=== PATIENT | male | born 1980 | race African-American/Black ===

== ENCOUNTER → 2020-01-23 | Outpatient (CLI) | payer MEDICAID ==
[~2020-01-23] MED LIST: AMIO400T7 PO; BUME1TAB3 PO; DIGO0.12 PO; IVAB1.7T PO; MAGN400T40 PO; METO2.5T11 PO; METO25TA93 PO; POTA10TA51 PO; POTA8TAB2 PO; RIVA15TA PO; SACU1TAB PO
[2020-01-23 12:02] LABS: Basophils # (auto) 0 10 ^3/uL (0-0.2); Basophils % (auto) 0.9 % (0.0-2.0); Eosinophils # (auto) 0.1 10 ^3/uL (0-0.8); Eosinophils % (auto) 2.3 % (0.0-7.0); Hematocrit 46.6 % (41.0-53.0); Hemoglobin 14.8 g/dL (13.5-17.5); Lymphocytes # (auto) 0.6 10 ^3/uL (0.4-5.4); Lymphocytes % (auto) 17.1 % (10.0-50.0); Mean Corpuscular Hemoglobin 29.4 pg (28.0-32.0); Mean Corpuscular Hgb Conc. 31.9 g/dL (32.0-36.0); Mean Corpuscular Volume 92.1 fL (80.0-100.0); Monocytes # (auto) 0.6 10 ^3/uL (0-1.3); Monocytes % (auto) 16.9 % (0.0-12.0); Neutrophils # (auto) 2.4 10 ^3/uL (1.6-8.6); Neutrophils % (auto) 62.8 % (37.0-80.0); Nucleated Red Blood Cells % 0.1 %; Platelet Count (auto) 176 10^3/uL (140-450); Red Blood Cells 5.06 10^6/uL (4.5-5.90); Red Cell Distribution Width 15.4 % (11.8-14.3); White Blood Cell 3.8 10^3/uL (4.4-10.8)
[2020-01-23 12:12] LABS: BUN/Creatinine Ratio 19.1; Calcium 9.6 mg/dL (8.5-10.1); Potassium 4.2 mmol/L (3.5-5.1)
[2020-01-23 12:21] LABS: INR 1.34 (0.9-1.15); Partial Thromboplastin Time 33.4 sec (23.0-31.2)
== END | disposition home or self-care (01) ==
LOC: Rad HDHVI 08:36
PROVIDERS: ATTEND Internal Medicine Cardiovascular Disease
DX: Z01.812 Encounter for preprocedural laboratory examination (principal); R91.1 Solitary pulmonary nodule; I51.7 Cardiomegaly; R06.02 Shortness of breath; I42.9 Cardiomyopathy, unspecified; I47.2 Ventricular tachycardia; I48.91 Unspecified atrial fibrillation; I50.9 Heart failure, unspecified
CPT/HCPCS: 36415; 71046; 80048; 85025; 85610; 85730

== ENCOUNTER 2020-01-29 06:55 | Day surgery (SDC) | payer MEDICAID ==
[~2020-01-29] VITALS: Ht 175.3 cm; Wt 64.0 kg
[2020-01-29] MEDS ORDERED: LIDOCAINE 2%HCL (LOCAL ANESTH.) INJ 20ML MDV ONE ×2 (08:45→09:39)
[2020-01-29] MEDS ORDERED: IOHEXOL 350 MG/ML 100ML IJ ONE (08:45)
[2020-01-29] MEDS ORDERED: ANGIOMAX 250 MG VIAL IV ONE (09:02)
[2020-01-29] MEDS ORDERED: fentaNYL CITRATE 100 MCG/2 ML VL ONE (09:02)
[2020-01-29] MEDS ORDERED: MIDAZOLAM HCL 1MG/1ML-2 ML VIAL ONE (09:02)
[2020-01-29] MEDS ORDERED: SODIUM CHL 0.9% 0 ML ONE (09:02)
[2020-01-29] MEDS ORDERED: IODIXANOL 320MG/ML 100ML BTL IV ONE (09:02)
[2020-01-29] MEDS ORDERED: ONDANSETRON HCL 4 MG/2 ML VIAL IV PRN (12:15)
[2020-01-29] MEDS ORDERED: HYDROcodone-ACET 5/325MG TAB PO PRN (12:15)
[2020-01-29] MEDS ORDERED: ACETAMINOPHEN 500 MG TAB PO PRN (12:15)
== END 2020-01-29 13:16 | disposition home or self-care (01) ==
LOC: CATH 06:55
PROVIDERS: ATTEND Internal Medicine Cardiovascular Disease
DX: I42.9 Cardiomyopathy, unspecified (principal); I25.10 Atherosclerotic heart disease of native coronary artery without angina pectoris; I11.0 Hypertensive heart disease with heart failure; Z20.828 Contact with and (suspected) exposure to other viral communicable diseases
CPT/HCPCS: 93460; C1751; C1760; C1769; C1894; J1644; J2250; J3010; Q9967; U0003; 99152; 99153

== ENCOUNTER → 2020-03-15 | Outpatient (CLI) | payer MEDICAID ==
[~2020-03-15] MED LIST changes: +CYANOCOBALAMIN (B-12) 1000 MCG/1 ML VIAL IM ONE; +CYANOCOBALAMIN (B-12) 1000 MCG/1 ML VIAL ONE; +DOBUTamine 1000MCG/ML 250 ML IV ONE
--- NOTE | 2020-03-15 08:39 | NUR ---
PT. TO CHF CLINIC FOR INDUCTION FOR WEEKLY DOBUTAMINE INFUSIONS PER DR. GOLDEN. PT. WITH HX: OF CARDIOMYOPATHY WITH REDUCED EF AND MOST RECENT LHC SHOWING EF LESS THAN 20%. PT HAS HAD A DUAL CHAMBER AICD SINCE 2018, AND HAS NOW BEEN STARTED ON HEART TRANSPLANT LIST AT [facility] PROTOCOL PER DR. GOLDEN, WITH EXPLANATION IN PROCESS OF STAGING. PT. HASN'T TAKEN ANY OF HIS MEDS THIS MORNING EXCEPT HIS BUMEX. MD ORDERS RECEIVED AND CARRIED OUT. SEE NSG ASSESS.
--- NOTE | 2020-03-15 08:58 | NUR ---
IV insertion IV access obtained, via clean sterile technique by inserting 22 gauge catheter at after attempt(s). IV secured properly. No trauma to site. Patient tolerated procedure well. LABS SENT PER MD ORDER.
--- NOTE | 2020-03-15 09:07 | NUR ---
Clinic Provider Clinic Provider into see pt with new orders received and carried out. Dobutamine gtt started at {3}mcg/kg/hr per MD order.
--- NOTE | 2020-03-15 09:15 | NUR ---
EKG DONE WITH KNOWN HX OF A-FIB/FLUTTER. VARIABLE RATE 51-68. RESULTS TO
[2020-03-15 09:54] LABS: Basophils # (auto) 0 10 ^3/uL (0-0.2); Basophils % (auto) 1.2 % (0.0-2.0); Eosinophils # (auto) 0 10 ^3/uL (0-0.8); Eosinophils % (auto) 1.3 % (0.0-7.0); Hematocrit 44.9 % (41.0-53.0); Hemoglobin 14.4 g/dL (13.5-17.5); Lymphocytes # (auto) 0.5 10 ^3/uL (0.4-5.4); Lymphocytes % (auto) 13.5 % (10.0-50.0); Mean Corpuscular Hemoglobin 29.8 pg (28.0-32.0); Mean Corpuscular Hgb Conc. 32.2 g/dL (32.0-36.0); Mean Corpuscular Volume 92.8 fL (80.0-100.0); Monocytes # (auto) 0.5 10 ^3/uL (0-1.3); Monocytes % (auto) 13.1 % (0.0-12.0); Neutrophils # (auto) 2.7 10 ^3/uL (1.6-8.6); Neutrophils % (auto) 70.9 % (37.0-80.0); Nucleated Red Blood Cells % 0.1 %; Platelet Count (auto) 222 10^3/uL (140-450); Red Blood Cells 4.84 10^6/uL (4.5-5.90); Red Cell Distribution Width 17.4 % (11.8-14.3); White Blood Cell 3.8 10^3/uL (4.4-10.8)
--- NOTE | 2020-03-15 10:00 | NUR ---
PT. WITH NO C/O. VSS WITH Q 15MIN OVER PAST HOUR. PT. TO AND FROM BR WITHOUT ASSIST.
[2020-03-15 10:10] LABS: Albumin 4.5 g/dL (3.4-5.0); Calcium 9.4 mg/dL (8.5-10.1); Magnesium 2.8 mg/dL (1.6-2.6); Potassium 3.4 mmol/L (3.5-5.1)
[2020-03-15 10:14] LABS: BUN/Creatinine Ratio 24.4; Bilirubin, Total 1.3 mg/dL (0.2-1.0); Total Protein 8.6 g/dL (6.4-8.2)
--- NOTE | 2020-03-15 10:42 | NUR ---
MEDS:PT. MEDICATED WITH VIT. B12 1000MCG IM RT. DELT PER MD ORDER.
--- NOTE | 2020-03-15 11:30 | NUR ---
comfort: pt. resting with no c/o. vss, pending labs.
--- NOTE | 2020-03-15 12:25 | NUR ---
MEDS: DOBUTAMINE COMPLETED WITH NO ADVERSE EVENTS. IV DC'D , SITE BENIGN, CATH. INTACT. PT. GIVEN SAMPLE OF VIT. D3 PER DR. GOLDEN WITH INSTRUCTIONS TO USE 5,000 UNITS Q HS. MED REC STILL IN PROGRESS REGARDING POTENTIAL CHANGES IN DOSING PER DR. GOLDEN PENDING LAB RESULTS.
--- NOTE | 2020-03-15 12:47 | NUR ---
Discharge Instructions See e-MAR for any mediations given with this visit. Patient education given on disease process. Patient verbalized understanding. Previous labs reviewed. Patient discharged in stable condition with after care instructions and follow up appointment. THIS RN WILL CALL PT. WITH LAB RESULTS AFTER REVIEW WITH DR. GOLDEN. PT. TO RTC IN ONE WEEK FOR DOBUTREX THERAPY. HEART TRANSPLANT STAGING TO CONTINUE THROUGH CLINIC.
--- NOTE | 2020-03-15 16:00 | NUR ---
LABS REVIEWED WITH DR. GOLDEN, SHOWING WORSENING BUN/CREAT. SINCE LAST OUTSIDE LAB DRAW AT [facility]. ON 01/22. NEW ORDERS RECEIVED FROM DR. GOLDEN TO HAVE PT. COME TO CLINIC 3 TIMES PER WEEK, HOLDING HIS BUMEX ON DAYS OF TX. PT. TO HOLD METOLAZONE UNTIL FURTHER ORDERS. PT. STATES HE WAS TAKING IT 2-3 TIMES PER WEEK. PT. ALSO TO STOP AMIODARONE 400MG PO DAILY NOW. THESE INSTRUCTIONS ON MED REC CHANGES WERE CALLED TO PT. BY THIS RN, WHO NOW WILL COME INTO CLINIC M/W/F. PT. WAS ALSO INSTRUCTED TO TAKE 16 MEQ POTASSIUM X ONE DOSE TODAY, AND HOLD HIS KCL ON DAYS HE HOLDS BUMEX. PT. HAS THIS RN'S CELL NUMBER FOR ANY QUESTIONS.
== END | disposition home or self-care (01) ==
LOC: CHF HDHVI 08:44
PROVIDERS: ATTEND Internal Medicine Cardiovascular Disease
DX: I11.0 Hypertensive heart disease with heart failure (principal); I50.23 Acute on chronic systolic (congestive) heart failure; I25.10 Atherosclerotic heart disease of native coronary artery without angina pectoris; I42.8 Other cardiomyopathies; I48.91 Unspecified atrial fibrillation; D64.9 Anemia, unspecified; D51.9 Vitamin B12 deficiency anemia, unspecified; E11.9 Type 2 diabetes mellitus without complications
CPT/HCPCS: 36415; 80053; 80162; 82306; 82607; 83036; 83735; 83880; 85025; 96365; 96366; 96372; G0463; J1250; J3420

== ENCOUNTER → 2020-03-16 | Outpatient (CLI) | payer MEDICAID ==
[~2020-03-16] MED LIST changes: -CYANOCOBALAMIN (B-12) 1000 MCG/1 ML VIAL IM ONE; -CYANOCOBALAMIN (B-12) 1000 MCG/1 ML VIAL ONE; -DOBUTamine 1000MCG/ML 250 ML IV ONE
== END | disposition home or self-care (01) ==
LOC: Rad HDHVI 13:04
PROVIDERS: ATTEND Internal Medicine Cardiovascular Disease
DX: I08.1 Rheumatic disorders of both mitral and tricuspid valves (principal); I50.43 Acute on chronic combined systolic (congestive) and diastolic (congestive) heart failure; I42.0 Dilated cardiomyopathy
CPT/HCPCS: 93306

== ENCOUNTER → 2020-03-17 | Outpatient (CLI) | payer MEDICAID ==
[2020-03-17] VITALS (9 sets, daily range): BP systolic 91–108; BP diastolic 54–70
[~2020-03-17] MED LIST changes: +DOBUTamine 1000MCG/ML 250 ML IV ONE
[2020-03-17 16:03] LABS: Potassium 3.5 mmol/L (3.5-5.1)
== END | disposition home or self-care (01) ==
LOC: CHF HDHVI 08:25
PROVIDERS: ATTEND Internal Medicine Cardiovascular Disease
DX: I11.0 Hypertensive heart disease with heart failure (principal); I50.23 Acute on chronic systolic (congestive) heart failure; R94.4 Abnormal results of kidney function studies; I25.10 Atherosclerotic heart disease of native coronary artery without angina pectoris; I48.91 Unspecified atrial fibrillation; I42.8 Other cardiomyopathies; R53.83 Other fatigue; R06.02 Shortness of breath
CPT/HCPCS: 36415; 71046; 82565; 84132; 84295; 84520; 96365; 96366; G0463; J1250

== ENCOUNTER → 2020-03-19 | Outpatient (CLI) | payer MEDICAID ==
[2020-03-19] VITALS (9 sets, daily range): BP systolic 93–139; BP diastolic 51–80
[~2020-03-19] VITALS: Ht 30.5 cm; Wt 0.5 kg
[~2020-03-19] MED LIST changes: +FUROSEMIDE 20 MG/2 ML VIAL IV ONE; +FUROSEMIDE 20 MG/2 ML VIAL ONE; +FUROSEMIDE 40 MG/4 ML VIAL ONE; +POTASSIUM CHL 10 Meq TABLET PO ONE; +POTASSIUM CHL 20 Meq TABLET PO ONE
== END | disposition home or self-care (01) ==
LOC: CHF HDHVI 08:17
PROVIDERS: ATTEND Internal Medicine Cardiovascular Disease
DX: I11.0 Hypertensive heart disease with heart failure (principal); I50.23 Acute on chronic systolic (congestive) heart failure; R53.83 Other fatigue; I25.10 Atherosclerotic heart disease of native coronary artery without angina pectoris; I42.8 Other cardiomyopathies; I48.91 Unspecified atrial fibrillation
CPT/HCPCS: 36415; 82565; 83880; 84132; 84295; 84520; 96365; 96366; 96375; G0463; J1250; J1940

== ENCOUNTER → 2020-03-22 | Outpatient (CLI) | payer MEDICAID ==
[2020-03-22] VITALS (9 sets, daily range): BP systolic 90–112; BP diastolic 49–73
[~2020-03-22] VITALS: Ht 30.5 cm; Wt 64.2 kg
[~2020-03-22] MED LIST changes: -FUROSEMIDE 20 MG/2 ML VIAL IV ONE; -FUROSEMIDE 20 MG/2 ML VIAL ONE; -FUROSEMIDE 40 MG/4 ML VIAL ONE; -POTASSIUM CHL 10 Meq TABLET PO ONE; -POTASSIUM CHL 20 Meq TABLET PO ONE
--- NOTE | 2020-03-22 08:24 | NUR ---
CLINIC PT ARRIVED TO THE CHF CLINIC FOR SCHEDULED CHF EVAL AND TX, A/OX4, AMBULATORY, BREATHING IS EVEN AND UNLABORED. PT BROUGHT IN HIS 24HOUR URINE SCREEN AND LABS TO BE DRAWN TODAY FOR PHASE 1 OF THE TRANSPLANT LIST. PT HAS A 3.8 WT DECREASE SINCE LAST VISIT ON 03/19/20
--- NOTE | 2020-03-22 08:43 | NUR ---
IV insertion IV access obtained, via clean sterile technique by inserting 22 gauge catheter at LAC after 1 attempt(s). IV secured properly. No trauma to site. Patient tolerated procedure well. LABS DRAWN AND SENT. NOTE INSERTED BY SUSSY QUIROS
--- NOTE | 2020-03-22 08:52 | NUR ---
DOBUTAMINE IV STARTED @ 5MCG/KG/MIN PER MD ORDERS, VSS, WILL CONTINUE TO MONITOR.
--- NOTE | 2020-03-22 10:00 | NUR ---
PT TOLERATING DOBUTAMINE INFUSION, IV SITE BENIGN, VSS, WILL CONTINUE TO MONITOR.
--- NOTE | 2020-03-22 12:02 | NUR ---
IV removal IV DC'd with sterile technique, catheter fully intact. Pressure dressing applied to site. Patient tolerated procedure well. Discharged with aftercare instructions per MD. NOTE: REMOVED BY SUSSY QUIROS
--- NOTE | 2020-03-22 12:06 | NUR ---
Discharge Instructions See e-MAR for any mediations given with this visit. Patient education given on disease process. Patient verbalized understanding. Previous labs reviewed. Patient discharged in stable condition with after care instructions and follow up appointment ON SUN. NOTE DOBUTAMINE IV [id number] ADMIN BY SUSSY QUIROS
[2020-03-22 12:32] LABS: Basophils # (auto) 0 10 ^3/uL (0-0.2); Eosinophils # (auto) 0 10 ^3/uL (0-0.8); Eosinophils % (auto) 0.9 % (0.0-7.0); Hematocrit 45.6 % (41.0-53.0); Hemoglobin 15.2 g/dL (13.5-17.5); Lymphocytes # (auto) 0.5 10 ^3/uL (0.4-5.4); Lymphocytes % (auto) 12.8 % (10.0-50.0); Mean Corpuscular Hemoglobin 30.7 pg (28.0-32.0); Mean Corpuscular Hgb Conc. 33.3 g/dL (32.0-36.0); Mean Corpuscular Volume 92.2 fL (80.0-100.0); Monocytes # (auto) 0.5 10 ^3/uL (0-1.3); Monocytes % (auto) 12.2 % (0.0-12.0); Neutrophils # (auto) 2.7 10 ^3/uL (1.6-8.6); Neutrophils % (auto) 73.1 % (37.0-80.0); Nucleated Red Blood Cells % 0.2 %; Platelet Count (auto) 236 10^3/uL (140-450); Red Blood Cells 4.95 10^6/uL (4.5-5.90); Red Cell Distribution Width 17.3 % (11.8-14.3); White Blood Cell 3.7 10^3/uL (4.4-10.8)
[2020-03-22 12:33] LABS: Potassium 3.9 mmol/L (3.5-5.1)
[2020-03-22 12:42] LABS: BUN/Creatinine Ratio 22.1; Calcium 9.3 mg/dL (8.5-10.1); Magnesium 2.6 mg/dL (1.6-2.6)
[2020-03-22 12:47] LABS: Hepatitis B Surface Antibody Negative
[2020-03-22 13:22] LABS: Creatinine, Urine 42.2 mg/dL (30.0-125.0); Protein, Urine 5.4 mg/dL (0.0-11.9)
[2020-03-22 13:24] LABS: 24 Hr. Total Protein, Urine 102.6 mg/24 Hr (<149.1)
[2020-03-22 13:26] LABS: Hepatitis A Total Antibody Positive
[2020-03-22 14:32] LABS: Creatinine Clearance, Urine 19.49 mL/min (75-115)
[2020-03-22 17:50] LABS: Hepatitis B Core Total AB Negative; Hepatitis C Antibody Negative (Negative)
[2020-03-25 08:48] LABS: Hepatitis B Surface Antigen Negative (Negative)
== END | disposition home or self-care (01) ==
LOC: CHF HDHVI 08:46
PROVIDERS: ATTEND Internal Medicine Cardiovascular Disease
DX: I11.0 Hypertensive heart disease with heart failure (principal); I50.23 Acute on chronic systolic (congestive) heart failure; I50.32 Chronic diastolic (congestive) heart failure; I25.10 Atherosclerotic heart disease of native coronary artery without angina pectoris; I48.91 Unspecified atrial fibrillation; I42.0 Dilated cardiomyopathy
CPT/HCPCS: 36415; 80048; 82575; 83735; 83880; 84156; 85025; 86703; 86704; 86706; 86708; 86803; 86850; 86900; 86901; 87340; 96365; 96366; G0463; J1250

== ENCOUNTER → 2020-03-24 | Outpatient (CLI) | payer MEDICAID ==
[2020-03-24] VITALS (9 sets, daily range): BP systolic 91–121; BP diastolic 42–70
[~2020-03-24] VITALS: Ht 30.5 cm; Wt 64.5 kg
[2020-03-24 12:08] LABS: Urine Blood 3+ /uL (Negative); Urine Specific Gravity 1.011 (1.001-1.035)
[2020-03-24 12:33] LABS: Potassium 3.9 mmol/L (3.5-5.1)
== END | disposition home or self-care (01) ==
LOC: CHF HDHVI 08:25
PROVIDERS: ATTEND Internal Medicine Cardiovascular Disease
DX: I11.0 Hypertensive heart disease with heart failure (principal); I50.23 Acute on chronic systolic (congestive) heart failure; E87.6 Hypokalemia; N39.0 Urinary tract infection, site not specified; I25.10 Atherosclerotic heart disease of native coronary artery without angina pectoris; I42.8 Other cardiomyopathies; I48.91 Unspecified atrial fibrillation
CPT/HCPCS: 36415; 81003; 82565; 83880; 84132; 84520; 87086; 96365; 96366; G0463; J1250

== ENCOUNTER → 2020-03-26 | Outpatient (CLI) | payer MEDICAID ==
[2020-03-26] VITALS (8 sets, daily range): BP systolic 96–114; BP diastolic 61–76
[2020-03-26 09:27] LABS: Basophils # (auto) 0.1 10 ^3/uL (0-0.2); Basophils % (auto) 1.4 % (0.0-2.0); Eosinophils # (auto) 0 10 ^3/uL (0-0.8); Eosinophils % (auto) 1.2 % (0.0-7.0); Hematocrit 43.8 % (41.0-53.0); Lymphocytes # (auto) 0.5 10 ^3/uL (0.4-5.4); Lymphocytes % (auto) 10.8 % (10.0-50.0); Mean Corpuscular Hemoglobin 29.9 pg (28.0-32.0); Mean Corpuscular Hgb Conc. 32.1 g/dL (32.0-36.0); Mean Corpuscular Volume 93.2 fL (80.0-100.0); Monocytes # (auto) 0.7 10 ^3/uL (0-1.3); Monocytes % (auto) 15.7 % (0.0-12.0); Neutrophils % (auto) 70.9 % (37.0-80.0); Nucleated Red Blood Cells % 0.2 %; Platelet Count (auto) 191 10^3/uL (140-450); Red Cell Distribution Width 16.6 % (11.8-14.3); White Blood Cell 4.2 10^3/uL (4.4-10.8)
[2020-03-26 09:37] LABS: Potassium 4.2 mmol/L (3.5-5.1)
== END | disposition home or self-care (01) ==
LOC: CHF HDHVI 08:10
PROVIDERS: ATTEND Internal Medicine Cardiovascular Disease
DX: I11.0 Hypertensive heart disease with heart failure (principal); I50.23 Acute on chronic systolic (congestive) heart failure; R53.83 Other fatigue; I25.10 Atherosclerotic heart disease of native coronary artery without angina pectoris; I42.8 Other cardiomyopathies; I48.91 Unspecified atrial fibrillation
CPT/HCPCS: 36415; 82565; 83880; 84132; 84295; 84520; 85025; 96365; 96366; G0463; J1250

== ENCOUNTER → 2020-03-29 | Outpatient (CLI) | payer MEDICAID ==
[~2020-03-29] VITALS: Ht 30.5 cm; Wt 64.0 kg
[2020-03-29] VITALS (9 sets, daily range): BP systolic 99–115; BP diastolic 69–84
[~2020-03-29] MED LIST changes: +MUPIROCIN 2% OINT 15gm or 22gm ONE
--- NOTE | 2020-03-29 08:10 | NUR ---
CLINIC PT ARRIVED TO THE CHF CLINIC FOR SCHEDULED CHF EVAL AND TX, A/OX4, AMBULATORY, BREATHING IS EVEN AND UNLABORED, PT C/O COUGH X2 DAYS
--- NOTE | 2020-03-29 08:16 | NUR ---
CLINIC PT ARRIVED TO THE CHF CLINIC FOR SCHEDULED CHF EVAL AND TX, A/OX4, AMBULATORY, BREATHING IS EVEN AND UNLABORED, PT C/O COUGH X 2 DAYS. Addendum: 03/29/20 at 0951 by SUSSY KNIGHT RN RN WRONG PT
--- NOTE | 2020-03-29 08:22 | NUR ---
IV insertion IV access obtained, via clean sterile technique by inserting 22 gauge catheter at LW after 1 attempt(s). IV secured properly. No trauma to site. Patient tolerated procedure well. LABS DRAWN AND SENT. NOTE INSERTED BY SUSSY QUIROS
--- NOTE | 2020-03-29 08:28 | NUR ---
DOBUTAMINE IV STARTED @ 5MCG/KG/MIN PER MD ORDERS, VSS, WILL CONTINUE TO MONITOR.
--- NOTE | 2020-03-29 08:38 | NUR ---
IV insertion IV access obtained, via clean sterile technique by inserting 22 gauge catheter at after 1 attempt(s). IV secured properly. No trauma to site. Patient tolerated procedure well. LABS DRAWN AND SENT. NOTE INSERTED BY SUSSY QUIROS Addendum: 03/29/20 at 0951 by SSUSY KNIGHT RN RN WRONG PT
--- NOTE | 2020-03-29 08:41 | NUR ---
DOBUTAMINE IV STARTED @ 5MCG/KG/MIN PER ORDERS, VSS, WILL CONTINUE TO MONITOR. Addendum: 03/29/20 at 0942 by SUSSY KNIGHT RN RN WRONG PT
[2020-03-29 09:53] LABS: Basophils # (auto) 0 10 ^3/uL (0-0.2); Basophils % (auto) 0.4 % (0.0-2.0); Eosinophils # (auto) 0 10 ^3/uL (0-0.8); Eosinophils % (auto) 0.8 % (0.0-7.0); Hemoglobin 13.6 g/dL (13.5-17.5); Lymphocytes # (auto) 0.6 10 ^3/uL (0.4-5.4); Lymphocytes % (auto) 13.5 % (10.0-50.0); Mean Corpuscular Hemoglobin 29.9 pg (28.0-32.0); Mean Corpuscular Hgb Conc. 32.3 g/dL (32.0-36.0); Mean Corpuscular Volume 92.5 fL (80.0-100.0); Monocytes # (auto) 0.6 10 ^3/uL (0-1.3); Monocytes % (auto) 14.6 % (0.0-12.0); Neutrophils % (auto) 70.7 % (37.0-80.0); Nucleated Red Blood Cells % 0.2 %; Platelet Count (auto) 169 10^3/uL (140-450); Red Blood Cells 4.53 10^6/uL (4.5-5.90); Red Cell Distribution Width 16.7 % (11.8-14.3); White Blood Cell 4.3 10^3/uL (4.4-10.8)
[2020-03-29 10:12] LABS: Calcium 9.2 mg/dL (8.5-10.1); Magnesium 2.7 mg/dL (1.6-2.6); Potassium 3.8 mmol/L (3.5-5.1)
--- NOTE | 2020-03-29 10:13 | NUR ---
PT TOLERATING DOBUTAMINE INFUSION, IV SITE BENIGN, VSS, WILL CONTINUE TO MONITOR.
[2020-03-29 11:03] LABS: BUN/Creatinine Ratio 15.5
--- NOTE | 2020-03-29 11:46 | NUR ---
Discharge Instructions See e-MAR for any mediations given with this visit. Patient education given on disease process. Patient verbalized understanding. Previous labs reviewed. Patient discharged in stable condition with after care instructions and follow up appointment ON SUN. NOTE DOBUTAMINE IV [id number] ADMIN BY SUSSY QUIROS
== END | disposition home or self-care (01) ==
LOC: CHF HDHVI 08:23
PROVIDERS: ATTEND Internal Medicine Cardiovascular Disease
DX: I11.0 Hypertensive heart disease with heart failure (principal); I50.23 Acute on chronic systolic (congestive) heart failure; I25.10 Atherosclerotic heart disease of native coronary artery without angina pectoris; I42.8 Other cardiomyopathies; I48.91 Unspecified atrial fibrillation; E11.9 Type 2 diabetes mellitus without complications
CPT/HCPCS: 36415; 80048; 83735; 83880; 85025; 96365; 96366; G0463; J1250

== ENCOUNTER → 2020-03-31 | Outpatient (CLI) | payer MEDICAID ==
[~2020-03-31] VITALS: Ht 30.5 cm; Wt 63.6 kg
[2020-03-31] VITALS (8 sets, daily range): BP systolic 101–112; BP diastolic 62–80
[~2020-03-31] MED LIST changes: -MUPIROCIN 2% OINT 15gm or 22gm ONE
--- NOTE | 2020-03-31 08:00 | NUR ---
CLINIC PT ARRIVED TO THE CHF CLINIC FOR WEEKLY SCHEDULED CHF EVAL AND TX, A/OX4, AMBULATORY, BREATHING IS EVEN AND UNLABORED.
--- NOTE | 2020-03-31 08:10 | NUR ---
IV insertion IV access obtained, via clean sterile technique by inserting 22 gauge catheter at LFA after 1 attempt(s). IV secured properly. No trauma to site. Patient tolerated procedure well. LABS DRAWN AND SENT. NOTE INSERTED BY ANISHA QUIROS
--- NOTE | 2020-03-31 09:35 | NUR ---
DOBUTAMINE IV STARTED @ 5MCG/KG/MIN PER MD ORDERS, VSS, WILL CONTINUE TO MONITOR.
--- NOTE | 2020-03-31 09:44 | NUR ---
PT TOLERATING DOBUTAMINE INFUSION, IV SITE BENIGN, VSS, WILL CONTINUE TO MONITOR.
--- NOTE | 2020-03-31 11:22 | NUR ---
Discharge Instructions See e-MAR for any mediations given with this visit. Patient education given on disease process. Patient verbalized understanding. Previous labs reviewed. Patient discharged in stable condition with after care instructions and follow up appointment ON SUNDAY. NOTE DOBUTAMINE IV [id number] ADMIN BY SUSSY QUIROS
[2020-03-31 12:07] LABS: Basophils # (auto) 0 10 ^3/uL (0-0.2); Basophils % (auto) 0.9 % (0.0-2.0); Eosinophils # (auto) 0 10 ^3/uL (0-0.8); Eosinophils % (auto) 0.9 % (0.0-7.0); Hematocrit 44.6 % (41.0-53.0); Hemoglobin 14.7 g/dL (13.5-17.5); Lymphocytes # (auto) 0.8 10 ^3/uL (0.4-5.4); Lymphocytes % (auto) 17.1 % (10.0-50.0); Mean Corpuscular Hemoglobin 30.3 pg (28.0-32.0); Mean Corpuscular Hgb Conc. 32.9 g/dL (32.0-36.0); Mean Corpuscular Volume 92.1 fL (80.0-100.0); Monocytes # (auto) 0.8 10 ^3/uL (0-1.3); Monocytes % (auto) 17.1 % (0.0-12.0); Neutrophils # (auto) 2.9 10 ^3/uL (1.6-8.6); Nucleated Red Blood Cells % 0.4 %; Platelet Count (auto) 189 10^3/uL (140-450); Red Blood Cells 4.84 10^6/uL (4.5-5.90); Red Cell Distribution Width 16.4 % (11.8-14.3); White Blood Cell 4.5 10^3/uL (4.4-10.8)
[2020-03-31 12:18] LABS: Potassium 3.9 mmol/L (3.5-5.1)
== END | disposition home or self-care (01) ==
LOC: CHF HDHVI 08:12
PROVIDERS: ATTEND Internal Medicine Cardiovascular Disease
DX: I11.0 Hypertensive heart disease with heart failure (principal); I50.23 Acute on chronic systolic (congestive) heart failure; R53.83 Other fatigue; I25.10 Atherosclerotic heart disease of native coronary artery without angina pectoris; I42.8 Other cardiomyopathies; I48.91 Unspecified atrial fibrillation; E11.9 Type 2 diabetes mellitus without complications
CPT/HCPCS: 36415; 82565; 83880; 84132; 84520; 85025; 96365; 96366; G0463; J1250

== ENCOUNTER → 2020-04-05 | Outpatient (CLI) | payer MEDICAID ==
[2020-04-05] VITALS (9 sets, daily range): BP systolic 108–119; BP diastolic 72–85
--- NOTE | 2020-04-05 08:15 | NUR ---
CLINIC PT ARRIVED TO THE CHF CLINIC FOR WEEKLY SCHEDULED CHF EVAL AND TX, A/OX4, AMBULATORY, BREATHING IS EVEN AND UNLABORED. PT C/O DECREASE IN ENERGY AND FEELING FATIGUE TODAY.
--- NOTE | 2020-04-05 08:28 | NUR ---
IV insertion IV access obtained, via clean sterile technique by inserting 22 gauge catheter at after 1 attempt(s). IV secured properly. No trauma to site. Patient tolerated procedure well. LABS DRAWN AND SENT. NOTE INSERTED BY ANISHA QUIROS
--- NOTE | 2020-04-05 08:32 | NUR ---
DOBUTAMINE IV STARTED @ 5 MCG/KG/MIN PER MD ORDERS, VSS, WILL CONTINUE TO MONITOR
--- NOTE | 2020-04-05 11:00 | NUR ---
PT TOLERATING DOBUTAMINE INFUSION, IV SITE BENIGN, VSS, WILL CONTINUE TO MONITOR.
--- NOTE | 2020-04-05 11:05 | NUR ---
MED REC DONE BY ANISHA QUIROS
--- NOTE | 2020-04-05 12:02 | NUR ---
Discharge Instructions See e-MAR for any mediations given with this visit. Patient education given on disease process. Patient verbalized understanding. Previous labs reviewed. Patient discharged in stable condition with after care instructions and follow up appointment ON SUN. PT HAS SCHEDULED PFT AT HOSPITAL ON 04/07/20 @0900 AND WILL COME TO CLINIC AFTER FOR TX AND EVAL. NOTE DOBUTAMINE IV [id number] ADMIN BY ANISHA QUIROS
[2020-04-05 12:25] LABS: Potassium 3.2 mmol/L (3.5-5.1)
[2020-04-05 12:32] LABS: BUN/Creatinine Ratio 24.1; Calcium 9.5 mg/dL (8.5-10.1); Magnesium 3.1 mg/dL (1.6-2.6)
== END | disposition home or self-care (01) ==
LOC: CHF HDHVI 08:53
PROVIDERS: ATTEND Internal Medicine Cardiovascular Disease
DX: I11.0 Hypertensive heart disease with heart failure (principal); I50.23 Acute on chronic systolic (congestive) heart failure; R53.83 Other fatigue; I25.10 Atherosclerotic heart disease of native coronary artery without angina pectoris; I48.91 Unspecified atrial fibrillation; I42.8 Other cardiomyopathies; E11.9 Type 2 diabetes mellitus without complications
CPT/HCPCS: 36415; 80048; 83735; 83880; 96365; 96366; G0463; J1250

== ENCOUNTER → 2020-04-07 | Outpatient (CLI) | payer MEDICAID ==
[~2020-04-07] MED LIST changes: +ALBUTEROL SULF 2.5 MG/0.5ML(0.5%) NEB SOLN ONE; -DOBUTamine 1000MCG/ML 250 ML IV ONE
== END | disposition home or self-care (01) ==
LOC: CHF HDHVI 08:22
PROVIDERS: ATTEND Internal Medicine Cardiovascular Disease
DX: Z00.00 Encounter for general adult medical examination without abnormal findings (principal)
CPT/HCPCS: 94060

== ENCOUNTER → 2020-04-07 | Outpatient (CLI) | payer MEDICAID ==
[2020-04-07] VITALS (8 sets, daily range): BP systolic 112–129; BP diastolic 65–96
[~2020-04-07] MED LIST changes: -ALBUTEROL SULF 2.5 MG/0.5ML(0.5%) NEB SOLN ONE; +CYANOCOBALAMIN (B-12) 1000 MCG/1 ML VIAL IM ONE; +CYANOCOBALAMIN (B-12) 1000 MCG/1 ML VIAL ONE; +DOBUTamine 1000MCG/ML 250 ML IV ONE
--- NOTE | 2020-04-07 10:30 | NUR ---
PATIENT INTO CLINIC FOR SCHEDULED DOBUTAMINE INFUSION, AAOX4, AMBULATORY, PATIENT STATES HE FEELS SHORT OF BREATH.
--- NOTE | 2020-04-07 10:45 | NUR ---
IV insertion IV access obtained by Sushil QUIROS, via clean sterile technique by inserting 22 gauge catheter at LFA after 1 attempt(s). IV secured properly. No trauma to site. Patient tolerated procedure well.
--- NOTE | 2020-04-07 12:30 | NUR ---
PATIENT BACK TO MD SIDE FOR APPT WITH DR GOLDEN.
[2020-04-07 12:39] LABS: Basophils # (auto) 0 10 ^3/uL (0-0.2); Basophils % (auto) 0.4 % (0.0-2.0); Eosinophils # (auto) 0 10 ^3/uL (0-0.8); Eosinophils % (auto) 0.9 % (0.0-7.0); Hematocrit 42.6 % (41.0-53.0); Hemoglobin 13.9 g/dL (13.5-17.5); Lymphocytes # (auto) 0.5 10 ^3/uL (0.4-5.4); Lymphocytes % (auto) 10.9 % (10.0-50.0); Mean Corpuscular Hemoglobin 30.1 pg (28.0-32.0); Mean Corpuscular Hgb Conc. 32.7 g/dL (32.0-36.0); Mean Corpuscular Volume 92.1 fL (80.0-100.0); Monocytes # (auto) 0.8 10 ^3/uL (0-1.3); Monocytes % (auto) 16.1 % (0.0-12.0); Neutrophils # (auto) 3.5 10 ^3/uL (1.6-8.6); Neutrophils % (auto) 71.7 % (37.0-80.0); Nucleated Red Blood Cells % 0.1 %; Platelet Count (auto) 201 10^3/uL (140-450); Red Blood Cells 4.63 10^6/uL (4.5-5.90); White Blood Cell 4.9 10^3/uL (4.4-10.8)
[2020-04-07 13:04] LABS: Albumin 4.5 g/dL (3.4-5.0); BUN/Creatinine Ratio 23.2; Bilirubin, Total 1.8 mg/dL (0.2-1.0); Calcium 9.4 mg/dL (8.5-10.1); Magnesium 3.2 mg/dL (1.6-2.6); Total Protein 8.8 g/dL (6.4-8.2)
--- NOTE | 2020-04-07 13:07 | NUR ---
IV removal IV DC'd with sterile technique, catheter fully intact. Pressure dressing applied to site. Patient tolerated procedure well.
--- NOTE | 2020-04-07 13:10 | NUR ---
Discharge Instructions See e-MAR for any mediations given with this visit. Patient education given on disease process. Patient verbalized understanding. Previous labs reviewed. Patient discharged in stable condition with after care instructions and follow up appointment. NOTE DOBUTAMINE [id number]; 12:30-1305 ADMIN BY ANISHA QUIROS. B12 IM R DELTOID ADMIN BY JANUSZ FRANKS.
[2020-04-07 13:21] LABS: Potassium 2.7 mmol/L (3.5-5.1)
== END | disposition home or self-care (01) ==
LOC: CHF HDHVI 10:41
PROVIDERS: ATTEND Internal Medicine Cardiovascular Disease
DX: I11.0 Hypertensive heart disease with heart failure (principal); I50.23 Acute on chronic systolic (congestive) heart failure; D64.9 Anemia, unspecified; E83.40 Disorders of magnesium metabolism, unspecified; N39.0 Urinary tract infection, site not specified; R53.83 Other fatigue; I25.10 Atherosclerotic heart disease of native coronary artery without angina pectoris; I48.91 Unspecified atrial fibrillation; I42.8 Other cardiomyopathies; E11.9 Type 2 diabetes mellitus without complications
CPT/HCPCS: 36415; 80053; 83735; 83880; 85025; 96365; 96366; 96372; G0463; J1250; J3420

== ENCOUNTER → 2020-04-09 | Outpatient (CLI) | payer MEDICAID ==
[2020-04-09] VITALS (10 sets, daily range): BP systolic 85–107; BP diastolic 52–77
[~2020-04-09] MED LIST changes: -CYANOCOBALAMIN (B-12) 1000 MCG/1 ML VIAL IM ONE; -CYANOCOBALAMIN (B-12) 1000 MCG/1 ML VIAL ONE; +POTASSIUM CHL 20 Meq TABLET PO ONE
--- NOTE | 2020-04-09 08:30 | NUR ---
CLINIC PT ARRIVED TO THE CHF CLINIC FOR WEEKLY SCHEDULED CHF EVAL AND TX, A/OX4, AMBULATORY, BREATHING IS EVEN AND UNLABORED.
--- NOTE | 2020-04-09 08:56 | NUR ---
IV insertion IV access obtained, via clean sterile technique by inserting 22 gauge catheter at LFA after 2 attempt(s). IV secured properly. No trauma to site. Patient tolerated procedure well. LABS DRAWN AND SENT STAT. NOTE INSERTED BY SUSSY QUIROS
--- NOTE | 2020-04-09 08:58 | NUR ---
DOBUTAMINE IV STARTED @ 5MCG/KG/MIN PER MD ORDERS, VSS, WILL CONTINUE TO MONITOR.
--- NOTE | 2020-04-09 10:11 | NUR ---
PT TOLERATING DOBUTAMINE INFUSION, IV SITE BENIGN, VSS, WILL CONTINUE TO MONITOR.
[2020-04-09 10:26] LABS: Potassium 3.3 mmol/L (3.5-5.1)
[2020-04-09 10:59] LABS: Magnesium 2.6 mg/dL (1.6-2.6)
--- NOTE | 2020-04-09 12:15 | NUR ---
Discharge Instructions See e-MAR for any mediations given with this visit. Patient education given on disease process. Patient verbalized understanding. Previous labs reviewed. Patient discharged in stable condition with after care instructions and follow up appointment ON SUNDAY. NOTE DOBUTAMINE IV [id number] ADMIN BY SUSSY GIMENEZUR PO ADMIN BY SUSSY QUIROS Addendum: 04/09/20 at 1225 by SUSSY KNIGHT RN RN PT GIVEN 1 CAN OF ARGINEX INSTRUCTED TO TAKE 1 SCOOP TWICE A DAY, PT ALSO INSTRUCTED NO FREE WATER AND TO DRINK GATORADE G2
== END | disposition home or self-care (01) ==
LOC: CHF HDHVI 08:27
PROVIDERS: ATTEND Internal Medicine Cardiovascular Disease
DX: I11.0 Hypertensive heart disease with heart failure (principal); I50.23 Acute on chronic systolic (congestive) heart failure; R53.83 Other fatigue; I25.10 Atherosclerotic heart disease of native coronary artery without angina pectoris; I48.91 Unspecified atrial fibrillation; I42.8 Other cardiomyopathies; E11.9 Type 2 diabetes mellitus without complications
CPT/HCPCS: 36415; 82565; 83735; 83880; 84132; 84295; 84520; 96365; 96366; G0463; J1250

== ENCOUNTER → 2020-04-12 | Outpatient (CLI) | payer MEDICAID ==
[2020-04-12] VITALS (9 sets, daily range): BP systolic 98–112; BP diastolic 68–76
[~2020-04-12] MED LIST changes: +FUROSEMIDE 20 MG/2 ML VIAL IV ONE; +FUROSEMIDE 20 MG/2 ML VIAL ONE
--- NOTE | 2020-04-12 08:14 | NUR ---
CLINIC PT ARRIVED TO THE CHF CLINIC FOR WEEKLY CHF EVAL AND TX, A/OX4, AMBULATORY, BREATHING IS EVEN AND UNLABORED, PT C/O SOB OVER THE WEEKEND AND DIFFICULTY BREATHING NOW. PT WAS SEEN AT [facility] ON THE WEEKEND. O2 APPLIED TO PT SATS 98% ON 2L N/C.
--- NOTE | 2020-04-12 08:50 | NUR ---
IV insertion IV access obtained, via clean sterile technique by inserting 22 gauge catheter at LFA after 1 attempt(s). IV secured properly. No trauma to site. Patient tolerated procedure well. LABS DRAWN AND SENT STAT. NOTE INSERTED BY ANISHA QUIROS
--- NOTE | 2020-04-12 08:57 | NUR ---
DOBUTAMINE IV STARTED @ 5MCG/KG/MIN PER MD ORDERS, VSS, WILL CONTINUE TO MONITOR.
[2020-04-12 09:36] LABS: BUN/Creatinine Ratio 23.5; Calcium 9.3 mg/dL (8.5-10.1); Magnesium 2.8 mg/dL (1.6-2.6); Potassium 3.7 mmol/L (3.5-5.1)
--- NOTE | 2020-04-12 10:34 | NUR ---
REVIEWED LAB RESULTS NEW ORDERS RECEIVED SEE EMAR.
--- NOTE | 2020-04-12 10:40 | NUR ---
PT TOLERATING DOBUTAMINE, IV SITE BENIGN, VSS, WILL CONTINUE TO MONITOR.
[2020-04-12 12:15] LABS: Urine Blood Negative /uL (Negative); Urine Specific Gravity 1.005 (1.001-1.035)
--- NOTE | 2020-04-12 12:25 | NUR ---
Discharge Instructions See e-MAR for any mediations given with this visit. Patient education given on disease process. Patient verbalized understanding. Previous labs reviewed. Patient discharged in stable condition with after care instructions and follow up appointment ON SUN. NOTE DOBUTAMINE IV [id number] ADMIN BY SUSSY QUIROS LASIX IVP ADMIN BY SUSSY QUIROS KDUR PO ADMIN BY SUSSY QUIROS
== END | disposition home or self-care (01) ==
LOC: CHF HDHVI 08:37
PROVIDERS: ATTEND Internal Medicine Cardiovascular Disease
DX: I11.0 Hypertensive heart disease with heart failure (principal); I50.23 Acute on chronic systolic (congestive) heart failure; N39.0 Urinary tract infection, site not specified; R53.83 Other fatigue; R06.02 Shortness of breath; I25.10 Atherosclerotic heart disease of native coronary artery without angina pectoris; I42.8 Other cardiomyopathies; E11.9 Type 2 diabetes mellitus without complications
CPT/HCPCS: 36415; 80048; 81003; 83735; 83880; 87086; 96365; 96366; 96375; G0463; J1250; J1940

== ENCOUNTER → 2020-04-14 | Outpatient (CLI) | payer MEDICAID ==
[~2020-04-14] VITALS: Ht 30.5 cm; Wt 64.7 kg
[2020-04-14] VITALS (9 sets, daily range): BP systolic 105–126; BP diastolic 65–86
[~2020-04-14] MED LIST changes: -FUROSEMIDE 20 MG/2 ML VIAL IV ONE; -FUROSEMIDE 20 MG/2 ML VIAL ONE; +SODIUM CHL 3% 500 ML IV ONE; +SODIUM CHL 3% 500 ML ONE
[2020-04-14 09:45] LABS: BUN/Creatinine Ratio 25.1; Calcium 9.2 mg/dL (8.5-10.1); Magnesium 2.7 mg/dL (1.6-2.6); Potassium 3.1 mmol/L (3.5-5.1)
[2020-04-14 09:51] LABS: Basophils # (auto) 0.1 10 ^3/uL (0-0.2); Basophils % (auto) 1.1 % (0.0-2.0); Eosinophils # (auto) 0 10 ^3/uL (0-0.8); Eosinophils % (auto) 0.9 % (0.0-7.0); Hematocrit 40.8 % (41.0-53.0); Lymphocytes # (auto) 0.4 10 ^3/uL (0.4-5.4); Lymphocytes % (auto) 9.1 % (10.0-50.0); Mean Corpuscular Hgb Conc. 31.9 g/dL (32.0-36.0); Mean Corpuscular Volume 90.9 fL (80.0-100.0); Monocytes # (auto) 0.7 10 ^3/uL (0-1.3); Monocytes % (auto) 14.8 % (0.0-12.0); Neutrophils # (auto) 3.4 10 ^3/uL (1.6-8.6); Neutrophils % (auto) 74.1 % (37.0-80.0); Nucleated Red Blood Cells % 0.1 %; Platelet Count (auto) 243 10^3/uL (140-450); Red Blood Cells 4.49 10^6/uL (4.5-5.90); White Blood Cell 4.6 10^3/uL (4.4-10.8)
== END | disposition home or self-care (01) ==
LOC: CHF HDHVI 08:12
PROVIDERS: ATTEND Internal Medicine Cardiovascular Disease
DX: I13.2 Hypertensive heart and chronic kidney disease with heart failure and with stage 5 chronic kidney disease, or end stage renal disease (principal); E11.22 Type 2 diabetes mellitus with diabetic chronic kidney disease; I50.42 Chronic combined systolic (congestive) and diastolic (congestive) heart failure; N18.6 End stage renal disease; E87.1 Hypo-osmolality and hyponatremia; I25.10 Atherosclerotic heart disease of native coronary artery without angina pectoris; I48.91 Unspecified atrial fibrillation; Z99.2 Dependence on renal dialysis; Z79.899 Other long term (current) drug therapy; Z95.810 Presence of automatic (implantable) cardiac defibrillator
CPT/HCPCS: 36415; 71250; 80048; 83735; 83880; 85025; 96365; 96366; 96367; G0463; J1250

== ENCOUNTER → 2020-04-16 | Outpatient (CLI) | payer MEDICAID ==
[~2020-04-16] MED LIST changes: +CYANOCOBALAMIN (B-12) 1000 MCG/1 ML VIAL IM ONE; +CYANOCOBALAMIN (B-12) 1000 MCG/1 ML VIAL ONE; -DOBUTamine 1000MCG/ML 250 ML IV ONE; +FUROSEMIDE 100 MG/10ML VIAL IV ONE; +FUROSEMIDE 40 MG/4 ML VIAL ONE; -SODIUM CHL 3% 500 ML IV ONE; -SODIUM CHL 3% 500 ML ONE; +TESTOSTERONE CYPIONATE 200 MG/ML 1ML VIAL IM ONE; +TRIAMCINOLONE 40MG/ML 1ML VIAL IM ONE; +TRIAMCINOLONE 40MG/ML 1ML VIAL ONE
--- NOTE | 2020-04-16 11:03 | NUR ---
Patient into clinic for scheduled treatment late. Patient visibly fatigued, sob, states he feels weak. Patient connected to monitor and swabbed for covid testing, and cxray ordered.
--- NOTE | 2020-04-16 11:55 | NUR ---
Dr Villarreal at chairside, orders received as entered and prescription for zpack and prednisone 40mg daily called into patient pharmacy.
[2020-04-16 13:05] VITALS: BP 130/72
--- NOTE | 2020-04-16 13:05 | NUR ---
Discharge Instructions See e-MAR for any mediations given with this visit. Patient education given on disease process. Patient verbalized understanding. Previous labs reviewed. Patient discharged in stable condition with after care instructions and follow up appointment on Sunday. Note B12 IM L DELTOID ADMIN BY DAMIAN QUIROS TESTOSTERONE IM R GLUTE ADMIN BY DAMIAN QUIROS KENALOG IM L GLUTE ADMIN BY DAMIAN QUIROS POTASSIUM PO ADMIN BY SUSSY QUIROS LASIX IVP ADMIN BY DAMIAN QUIROS
[2020-04-16 16:19] LABS: Calcium 9.2 mg/dL (8.5-10.1)
[2020-04-16 16:33] LABS: Potassium 5.8 mmol/L (3.5-5.1)
== END | disposition home or self-care (01) ==
LOC: Rad HDHVI 11:15
PROVIDERS: ATTEND Internal Medicine Cardiovascular Disease
DX: I11.0 Hypertensive heart disease with heart failure (principal); I50.43 Acute on chronic combined systolic (congestive) and diastolic (congestive) heart failure; R05 Cough; I25.10 Atherosclerotic heart disease of native coronary artery without angina pectoris; I42.0 Dilated cardiomyopathy; E11.9 Type 2 diabetes mellitus without complications; I48.91 Unspecified atrial fibrillation; D51.9 Vitamin B12 deficiency anemia, unspecified
CPT/HCPCS: 36415; 71046; 80048; 83880; 96372; 96374; G0463; J1071; J1940; J3301; J3420

== ENCOUNTER → 2020-04-19 | Outpatient (CLI) | payer MEDICAID ==
[~2020-04-19] VITALS: Ht 30.5 cm; Wt 65.8 kg
[2020-04-19] VITALS (11 sets, daily range): BP systolic 102–127; BP diastolic 70–90
[~2020-04-19] MED LIST changes: -CYANOCOBALAMIN (B-12) 1000 MCG/1 ML VIAL IM ONE; -CYANOCOBALAMIN (B-12) 1000 MCG/1 ML VIAL ONE; -FUROSEMIDE 100 MG/10ML VIAL IV ONE; -FUROSEMIDE 40 MG/4 ML VIAL ONE; -POTASSIUM CHL 20 Meq TABLET PO ONE; +SODIUM CHL 3% 500 ML IV ONE; +SODIUM CHL 3% 500 ML ONE; -TESTOSTERONE CYPIONATE 200 MG/ML 1ML VIAL IM ONE; -TRIAMCINOLONE 40MG/ML 1ML VIAL IM ONE; -TRIAMCINOLONE 40MG/ML 1ML VIAL ONE
--- NOTE | 2020-04-19 08:35 | NUR ---
CLINIC PT ARRIVED TO CHF CLINIC FOR SCHEDULED CHF EVAL AND TX. PT A/OX4, ABLE TO FOLLOW COMMANDS, AMBULATORY AND BREATHING EVEN AND UNLABORED.
--- NOTE | 2020-04-19 08:55 | NUR ---
IV insertion IV access obtained, via clean sterile technique by inserting 22 gauge catheter at L FA after attempt(s). IV secured properly. No trauma to site. Patient tolerated procedure well. LABS DRAWN AND SENT STAT. NOTE IV INSERTION BY ISHAAN MARTIN
--- NOTE | 2020-04-19 08:57 | NUR ---
SODIUM CHL 3% IV STARTED PER MD ORDERS
[2020-04-19 09:17] LABS: Basophils # (auto) 0 10 ^3/uL (0-0.2); Eosinophils # (auto) 0 10 ^3/uL (0-0.8); Hematocrit 42.7 % (41.0-53.0); Hemoglobin 13.8 g/dL (13.5-17.5); Lymphocytes # (auto) 0.7 10 ^3/uL (0.4-5.4); Lymphocytes % (auto) 12.9 % (10.0-50.0); Mean Corpuscular Volume 90.5 fL (80.0-100.0); Monocytes # (auto) 0.7 10 ^3/uL (0-1.3); Monocytes % (auto) 12.9 % (0.0-12.0); Neutrophils # (auto) 4.3 10 ^3/uL (1.6-8.6); Neutrophils % (auto) 74.2 % (37.0-80.0); Nucleated Red Blood Cells % 0.2 %; Red Blood Cells 4.72 10^6/uL (4.5-5.90); White Blood Cell 5.7 10^3/uL (4.4-10.8)
[2020-04-19 09:18] LABS: Mean Corpuscular Hemoglobin 29.2 pg (28.0-32.0); Mean Corpuscular Hgb Conc. 32.3 g/dL (32.0-36.0); Platelet Count (auto) 252 10^3/uL (140-450)
[2020-04-19 09:38] LABS: Albumin 4.1 g/dL (3.4-5.0); Calcium 9.6 mg/dL (8.5-10.1); Magnesium 2.8 mg/dL (1.6-2.6); Potassium 3.8 mmol/L (3.5-5.1)
[2020-04-19 09:41] LABS: INR 1.44 (0.9-1.15)
[2020-04-19 09:42] LABS: BUN/Creatinine Ratio 19.4; Bilirubin, Total 1.5 mg/dL (0.2-1.0); Total Protein 8.6 g/dL (6.4-8.2)
--- NOTE | 2020-04-19 11:00 | NUR ---
PT SITTING IN CHAIR COMFORTABLE, IV SITE ASSESSED AND NO S/S OF INFILTRATION, VSS AND WILL CONTINUE TO MONITOR.
--- NOTE | 2020-04-19 13:08 | NUR ---
IV removal IV DC'd with sterile technique, catheter fully intact. Pressure dressing applied to site. Patient tolerated procedure well. Discharged with aftercare instructions per MD. NOTE: IV D/C BY ISHAAN MARTIN
--- NOTE | 2020-04-19 13:11 | NUR ---
Discharge Instructions See e-MAR for any mediations given with this visit. Patient education given on disease process. Patient verbalized understanding. Previous labs reviewed. Patient discharged in stable condition with after care instructions and follow up appointment ON SUNDAY. NOTE 3% SODIUM CHL IV 0859 - 1300 ADMIN BY ISHAAN MARTIN
== END | disposition home or self-care (01) ==
LOC: CHF HDHVI 08:37
PROVIDERS: ATTEND Internal Medicine Cardiovascular Disease
DX: E87.1 Hypo-osmolality and hyponatremia (principal); I11.0 Hypertensive heart disease with heart failure; I50.23 Acute on chronic systolic (congestive) heart failure; I25.10 Atherosclerotic heart disease of native coronary artery without angina pectoris; E11.9 Type 2 diabetes mellitus without complications; I48.91 Unspecified atrial fibrillation; I42.0 Dilated cardiomyopathy; D51.9 Vitamin B12 deficiency anemia, unspecified
CPT/HCPCS: 36415; 80053; 83735; 83880; 85025; 85610; 85730; 96365; 96366; G0463

== ENCOUNTER → 2020-04-20 | Outpatient (CLI) | payer MEDICAID ==
[~2020-04-20] MED LIST changes: +LIDOCAINE 1% (LOCAL ANESTH.) PF 5ml SDV ID ONE; -SODIUM CHL 3% 500 ML IV ONE; -SODIUM CHL 3% 500 ML ONE; +SODIUM CHLOR 0.9% PF (SALINE LOCK) 10ML VIAL/SYR IV SCH
--- NOTE | 2020-04-20 12:34 | NUR ---
PICC line placement Patient educated on need for PICC line placement. All risks and benefits explained and all questions and concerns addressed prior to procedure. Noted past medical history and allergies with no contraindications. INR and Plt counts within acceptable range. 5 fr PICC line inserted via RIGHT BRACHIAL vein using [email or web address] US and Tip Location System. Sterile technique with maximum barrier precautions utilized. Blood return obtained from each of THE THREE lumens and each flushed easily with NS using proper technique. PICC secured with Stat-lock; biodisc and occlusive dressing applied. Stat portable chest x-ray obtained for PICC tip placement. INFORMED PATIENT TO NOT LEAVE HOSPITAL UNTIL I GIVE THE OK DUE TO THE RADIOLOGIST MUST READ THE CXR TO CONFIRM PLACEMENT. *Baseline Arm Circumference 26 CM INTERNAL LENGTH 39 EXTERNAL LENGTH 0 CM PICC lot # [id number] Addendum: 04/20/20 at 1243 by DOROTHY CISNEROS RN PICC LINE IS A DOUBLE NOT A TRIPLE LUMEN
--- NOTE | 2020-04-20 13:10 | NUR ---
INFORMED PATIENT THE RADIOLOGIST READ THE CXR AND THAT HE WAS OK TO LEAVE AT THIS TIME. HE VERBALIZED UNDERSTANDING.
== END | disposition home or self-care (01) ==
LOC: XYW 10:43
PROVIDERS: ATTEND Internal Medicine Cardiovascular Disease
DX: Z45.2 Encounter for adjustment and management of vascular access device (principal); Z98.890 Other specified postprocedural states; Z79.899 Other long term (current) drug therapy
CPT/HCPCS: 36569; 71045; C1751; J7050

== ENCOUNTER → 2020-04-21 | Outpatient (CLI) | payer MEDICAID ==
[2020-04-21] VITALS (9 sets, daily range): BP systolic 100–124; BP diastolic 63–87
[~2020-04-21] VITALS: Ht 30.5 cm; Wt 0.5 kg
[~2020-04-21] MED LIST changes: +DOBUTamine 1000MCG/ML 250 ML IV ONE; -LIDOCAINE 1% (LOCAL ANESTH.) PF 5ml SDV ID ONE; +MUPIROCIN 2% OINT 15gm or 22gm ONE; -SODIUM CHLOR 0.9% PF (SALINE LOCK) 10ML VIAL/SYR IV SCH
--- NOTE | 2020-04-21 08:18 | NUR ---
CLINIC PT ARRIVED TO CHF CLINIC FOR WEEKLY SCHEDULE CHF EVAL AND TX. PT S/P PICC LINE PLACEMENT ON 04/20/2020. PT A/OX4, AMBULATORY AND BREATHING EVEN AND UNLABORED.
--- NOTE | 2020-04-21 08:30 | NUR ---
WOUND CARE STERILE PROCEDURE PICC LINE DRESSING CHANGE TO RUBIA PER PROTOCOL DONE BY ISHAAN HI.
--- NOTE | 2020-04-21 08:52 | NUR ---
DOBUTAMINE IV AT 5MCG/KG/MIN STARTED PER MD ORDERS. PT TOLERATED PROCEDURE WELL, VSS AND WILL CONTINUE TO MONITOR.
[2020-04-21 09:33] LABS: Calcium 9.2 mg/dL (8.5-10.1); Magnesium 2.6 mg/dL (1.6-2.6); Potassium 4.4 mmol/L (3.5-5.1)
[2020-04-21 09:35] LABS: BUN/Creatinine Ratio 17.9
--- NOTE | 2020-04-21 10:30 | NUR ---
PT SITTING IN CHAIR COMFORTABLY, IV SITE INTACT NO S/S OF INFILTRATION, VSS AND WILL CONTINUE TO MONITOR.
--- NOTE | 2020-04-21 12:05 | NUR ---
PICC Line meds Medication completed per MD order. See e-MAR for medications given during this visit. Patient tolerated medication well. PICC line flushed per protocol. Patient tolerated procedure well. Patient D/C'd stable with aftercare and follow up instructions per MD.
--- NOTE | 2020-04-21 12:10 | NUR ---
Discharge Instructions See e-MAR for any mediations given with this visit. Patient education given on disease process. Patient verbalized understanding. Previous labs reviewed. Patient discharged in stable condition with after care instructions and follow up appointment ON SUNDAY. NOTE DOBUTAMINE IV 7838 - [id number] ADMIN BY ISHAAN MARTIN HEPARIN IVP X2 ADMIN BY ISHAAN HI
== END | disposition home or self-care (01) ==
LOC: CHF HDHVI 08:23
PROVIDERS: ATTEND Internal Medicine Cardiovascular Disease
DX: I11.0 Hypertensive heart disease with heart failure (principal); I50.42 Chronic combined systolic (congestive) and diastolic (congestive) heart failure; I25.10 Atherosclerotic heart disease of native coronary artery without angina pectoris; E11.9 Type 2 diabetes mellitus without complications; I42.8 Other cardiomyopathies; I48.91 Unspecified atrial fibrillation; Z79.899 Other long term (current) drug therapy
CPT/HCPCS: 36415; 80048; 83735; 83880; 96365; 96366; G0463; J1250; J1642

== ENCOUNTER 2020-05-14 16:22 | Inpatient (IN) | payer MEDICAID ==
[~2020-05-14] VITALS: Ht 152.4 cm; Wt 72.6 kg
[~2020-05-14 16:22] MED LIST changes: -DOBUTamine 1000MCG/ML 250 ML IV ONE; -MUPIROCIN 2% OINT 15gm or 22gm ONE
[2020-05-14] MEDS ORDERED: ONDANSETRON HCL 4 MG/2 ML VIAL IV ONE (18:30)
[2020-05-14] MEDS ORDERED: MORPHINE SULFATE 4 MG/ML SYR/VIAL IV PRN ×2 (18:30→22:30)
[2020-05-14 21:50] LABS: Basophils # (auto) 0.1 10 ^3/uL (0-0.2); Basophils % (auto) 1.2 % (0.0-2.0); Eosinophils # (auto) 0 10 ^3/uL (0-0.8); Eosinophils % (auto) 0.2 % (0.0-7.0); Hematocrit 36.8 % (41.0-53.0); Lymphocytes # (auto) 0.4 10 ^3/uL (0.4-5.4); Lymphocytes % (auto) 6.6 % (10.0-50.0); Mean Corpuscular Hemoglobin 29.3 pg (28.0-32.0); Mean Corpuscular Hgb Conc. 32.6 g/dL (32.0-36.0); Mean Corpuscular Volume 89.9 fL (80.0-100.0); Monocytes # (auto) 0.9 10 ^3/uL (0-1.3); Neutrophils # (auto) 4.5 10 ^3/uL (1.6-8.6); Nucleated Red Blood Cells % 0.3 %; Platelet Count (auto) 205 10^3/uL (140-450); Red Cell Distribution Width 16.6 % (11.8-14.3); White Blood Cell 5.9 10^3/uL (4.4-10.8)
[2020-05-14 22:10] LABS: Potassium 5.2 mmol/L (3.5-5.1)
[2020-05-14 22:11] LABS: INR 1.34 (0.9-1.15); Partial Thromboplastin Time 51.8 sec (23.0-31.2)
[2020-05-14 22:17] LABS: Albumin 3.2 g/dL (3.4-5.0); Bilirubin, Total 1.5 mg/dL (0.2-1.0); Calcium 8.8 mg/dL (8.5-10.1); Magnesium 2.2 mg/dL (1.6-2.6); Total Protein 7.5 g/dL (6.4-8.2)
[2020-05-14] MEDS ORDERED: MORPHINE SULF INJ 2 MG/ML SYRINGE 1ML IV PRN (22:30)
[2020-05-14] MEDS ORDERED: ACETAMINOPHEN 325 MG TAB PO PRN (22:30)
[2020-05-14] MEDS ORDERED: HYDROcodone-ACET 5/325MG TAB PO PRN (22:30)
[2020-05-14] MEDS ORDERED: DOCUSATE SOD 100 MG CAP PO PRN (22:30)
[2020-05-14] MEDS ORDERED: ONDANSETRON HCL 4 MG/2 ML VIAL IV PRN (22:30)
[2020-05-14] MEDS ORDERED: NITROGLYCERIN 0.4 MG SL TAB SL PRN (22:30)
[2020-05-15 01:01] VITALS: BP 199/164
[2020-05-15 01:17] VITALS: BP 148/88
[2020-05-15] MEDS: SODIUM CHLOR 0.9% PF (SALINE LOCK) 10ML VIAL/SYR IV SCH ×3 (06:00→23:04)
[2020-05-15 06:16] LABS: Basophils # (auto) 0.1 10 ^3/uL (0-0.2); Basophils % (auto) 1.1 % (0.0-2.0); Eosinophils # (auto) 0 10 ^3/uL (0-0.8); Eosinophils % (auto) 0.1 % (0.0-7.0); Hematocrit 39.2 % (41.0-53.0); Hemoglobin 12.9 g/dL (13.5-17.5); Lymphocytes # (auto) 0.4 10 ^3/uL (0.4-5.4); Lymphocytes % (auto) 6.2 % (10.0-50.0); Mean Corpuscular Hemoglobin 29.9 pg (28.0-32.0); Mean Corpuscular Volume 90.6 fL (80.0-100.0); Monocytes # (auto) 1.1 10 ^3/uL (0-1.3); Monocytes % (auto) 17.2 % (0.0-12.0); Neutrophils # (auto) 4.8 10 ^3/uL (1.6-8.6); Neutrophils % (auto) 75.4 % (37.0-80.0); Nucleated Red Blood Cells % 0.4 %; Platelet Count (auto) 209 10^3/uL (140-450); Red Blood Cells 4.32 10^6/uL (4.5-5.90); Red Cell Distribution Width 16.1 % (11.8-14.3); White Blood Cell 6.4 10^3/uL (4.4-10.8)
[2020-05-15 06:34] LABS: Potassium 5.2 mmol/L (3.5-5.1)
[2020-05-15 06:45] LABS: Albumin 3.4 g/dL (3.4-5.0); Calcium 9.4 mg/dL (8.5-10.1)
[2020-05-15] MEDS ORDERED: SODIUM CHL 3% 500 ML IV ONE (07:30)
[2020-05-15] MEDS: SEVELAMER 800 MG TAB PO SCH ×3 (08:24→18:13)
[2020-05-15] MEDS: FAMOTIDINE (10MG/ML) 2ML VL IV SCH ×2 (10:00→23:05)
[2020-05-15] MEDS: ASCORBIC ACID 500 MG TAB PO SCH ×2 (10:00→23:04)
[2020-05-15] MEDS: ZINC SULFATE 220mg CAP or TAB PO SCH (10:00)
[2020-05-15] MEDS: B-COMPLEX W/ C & FOLIC ACID(NEPHROVITE TAB) PO SCH (10:00)
[2020-05-15] MEDS: HEPARIN SODIUM (PORCINE) 5000 UNITS/ML 1ML VIAL SC SCH ×2 (10:00→22:56)
[2020-05-15] MEDS: SODIUM CHLORIDE 1 GM TAB PO SCH ×2 (14:00→23:04)
[2020-05-15 19:11] LABS: Urine Bacteria NONE SEEN /hpf (None Seen); Urine Blood Negative /uL (Negative); Urine Specific Gravity 1.014 (1.001-1.035); Urine WBC 2 /hpf (0 - 3)
[2020-05-15 19:44] LABS: BUN/Creatinine Ratio 15.1; Calcium 8.6 mg/dL (8.5-10.1)
[2020-05-15 19:45] LABS: Creatinine, Urine 162 mg/dL (30.0-125.0); Sodium Urine < 5 mmol/L (40-220)
[2020-05-15 20:00] LABS: Potassium 5.6 mmol/L (3.5-5.1)
[2020-05-16] MEDS ORDERED: InsuLIN REG 1unit/0.01ml Soln (100units/ml) IV ONE (00:45)
[2020-05-16] MEDS ORDERED: DEXTROSE (50%) 50ML SYRG IV ONE (00:45)
[2020-05-16] MEDS: SODIUM CHLORIDE 1 GM TAB PO SCH ×2 (06:10→14:36)
[2020-05-16] MEDS: SODIUM CHLOR 0.9% PF (SALINE LOCK) 10ML VIAL/SYR IV SCH ×2 (06:10→08:01)
[2020-05-16] MEDS: SEVELAMER 800 MG TAB PO SCH ×3 (08:01→18:44)
[2020-05-16] MEDS: B-COMPLEX W/ C & FOLIC ACID(NEPHROVITE TAB) PO SCH (08:01)
[2020-05-16] MEDS: ZINC SULFATE 220mg CAP or TAB PO SCH (08:01)
[2020-05-16] MEDS: ASCORBIC ACID 500 MG TAB PO SCH (08:01)
[2020-05-16] MEDS: FAMOTIDINE (10MG/ML) 2ML VL IV SCH (08:01)
[2020-05-16 08:52] LABS: Basophils # (auto) 0 10 ^3/uL (0-0.2); Eosinophils # (auto) 0 10 ^3/uL (0-0.8); Eosinophils % (auto) 0.2 % (0.0-7.0); Hematocrit 36.2 % (41.0-53.0); Hemoglobin 11.9 g/dL (13.5-17.5); Lymphocytes # (auto) 0.3 10 ^3/uL (0.4-5.4); Lymphocytes % (auto) 6.4 % (10.0-50.0); Mean Corpuscular Hemoglobin 29.4 pg (28.0-32.0); Mean Corpuscular Hgb Conc. 32.8 g/dL (32.0-36.0); Mean Corpuscular Volume 89.6 fL (80.0-100.0); Monocytes # (auto) 0.8 10 ^3/uL (0-1.3); Neutrophils # (auto) 3.7 10 ^3/uL (1.6-8.6); Neutrophils % (auto) 76.4 % (37.0-80.0); Nucleated Red Blood Cells % 0.8 %; Platelet Count (auto) 222 10^3/uL (140-450); Red Blood Cells 4.04 10^6/uL (4.5-5.90); Red Cell Distribution Width 16.4 % (11.8-14.3); White Blood Cell 4.9 10^3/uL (4.4-10.8)
[2020-05-16 09:05] LABS: Calcium 8.8 mg/dL (8.5-10.1); Potassium 5.4 mmol/L (3.5-5.1)
[2020-05-16 09:08] LABS: BUN/Creatinine Ratio 15.9
[2020-05-16] MEDS ORDERED: AMIODARONE HCL 200 MG TAB PO SCH (10:00)
[2020-05-16 17:00] VITALS: BP 126/82
[2020-05-16] MEDS ORDERED: RIVAROXABAN 15 MG TAB PO SCH (18:00)
== END 2020-05-16 19:25 | disposition left against medical advice (07) | DRG 280 ==
LOC: EDBD 16:22 → ER 16:22 → TELE 22:35
PROVIDERS: ADMIT Nurse Practitioner Family; ATTEND Nurse Practitioner Family
PROC: 0W9G3ZZ Drainage of Peritoneal Cavity, Percutaneous Approach (ICD-10-PCS; principal; 2020-05-15)
DX: K70.31 Alcoholic cirrhosis of liver with ascites (principal); Z53.29 Procedure and treatment not carried out because of patient's decision for other reasons; E66.9 Obesity, unspecified; Z20.822 Contact with and (suspected) exposure to COVID-19; E87.1 Hypo-osmolality and hyponatremia; I13.2 Hypertensive heart and chronic kidney disease with heart failure and with stage 5 chronic kidney disease, or end stage renal disease; I48.0 Paroxysmal atrial fibrillation; I50.23 Acute on chronic systolic (congestive) heart failure; N18.6 End stage renal disease; Z68.31 Body mass index [BMI] 31.0-31.9, adult; Z99.2 Dependence on renal dialysis; Z95.810 Presence of automatic (implantable) cardiac defibrillator; Z79.899 Other long term (current) drug therapy
CPT/HCPCS: 10022; 36415; 71045; 74176; 76700; 76942; 80048; 80053; 80162; 81001; 82570; 83605; 83735; 83880; 83935; 84300; 85025; 85610; 85730; 87426; 93005; 96360; G0378; J1815; J3490

== ENCOUNTER → 2020-05-27 | Outpatient (CLI) | payer MEDICAID ==
[~2020-05-27] MED LIST changes: +ALBUAER3 IN; +ASCO500T11 PO; +BENZ100C97 PO; +BUME1TAB25 PO; +BUME2TAB5 PO; +BUSP10TA31 PO; +CHOL1CAP47 PO; +CHOL20009 PO; +CYANOCOBALAMIN (B-12) 1000 MCG/1 ML VIAL IM ONE; +CYANOCOBALAMIN (B-12) 1000 MCG/1 ML VIAL ONE; +FLUC200T50 PO; +HYDR25TA87 PO; +PRE1T PO; +PRED20TA2 PO; +ZINC220T6 PO
[2020-05-27 10:29] LABS: Basophils # (auto) 0 10 ^3/uL (0-0.2); Basophils % (auto) 0.4 % (0.0-2.0); Eosinophils # (auto) 0 10 ^3/uL (0-0.8); Hematocrit 37.7 % (41.0-53.0); Hemoglobin 12.3 g/dL (13.5-17.5); Lymphocytes # (auto) 0.1 10 ^3/uL (0.4-5.4); Lymphocytes % (auto) 1.5 % (10.0-50.0); Mean Corpuscular Hemoglobin 28.6 pg (28.0-32.0); Mean Corpuscular Hgb Conc. 32.7 g/dL (32.0-36.0); Mean Corpuscular Volume 87.5 fL (80.0-100.0); Monocytes # (auto) 0.4 10 ^3/uL (0-1.3); Monocytes % (auto) 4.5 % (0.0-12.0); Neutrophils # (auto) 7.8 10 ^3/uL (1.6-8.6); Neutrophils % (auto) 93.6 % (37.0-80.0); Nucleated Red Blood Cells % 0.5 %; Platelet Count (auto) 202 10^3/uL (140-450); Red Blood Cells 4.31 10^6/uL (4.5-5.90); Red Cell Distribution Width 16.9 % (11.8-14.3); White Blood Cell 8.4 10^3/uL (4.4-10.8)
[2020-05-27 10:30] LABS: Albumin 2.5 g/dL (3.4-5.0); Calcium 8.1 mg/dL (8.5-10.1); Magnesium 2.2 mg/dL (1.6-2.6); Potassium 3.8 mmol/L (3.5-5.1)
[2020-05-27 10:35] LABS: BUN/Creatinine Ratio 10.4; Bilirubin, Total 1.4 mg/dL (0.2-1.0); Total Protein 6.6 g/dL (6.4-8.2)
[2020-05-27 11:35] VITALS: BP 105/74
== END | disposition home or self-care (01) ==
LOC: CHF HDHVI 09:15
PROVIDERS: ATTEND Internal Medicine Cardiovascular Disease
DX: I13.2 Hypertensive heart and chronic kidney disease with heart failure and with stage 5 chronic kidney disease, or end stage renal disease (principal); E11.22 Type 2 diabetes mellitus with diabetic chronic kidney disease; N18.6 End stage renal disease; I50.23 Acute on chronic systolic (congestive) heart failure; I25.10 Atherosclerotic heart disease of native coronary artery without angina pectoris; D64.9 Anemia, unspecified; F41.9 Anxiety disorder, unspecified; I25.2 Old myocardial infarction; I42.8 Other cardiomyopathies; I48.0 Paroxysmal atrial fibrillation; F32.9 Major depressive disorder, single episode, unspecified; K74.60 Unspecified cirrhosis of liver; J90 Pleural effusion, not elsewhere classified; E66.9 Obesity, unspecified; Z68.31 Body mass index [BMI] 31.0-31.9, adult; Z99.2 Dependence on renal dialysis; Z79.899 Other long term (current) drug therapy; Z79.01 Long term (current) use of anticoagulants
CPT/HCPCS: 36415; 80053; 82306; 83735; 83880; 85025; 87070; 87205; 93005; 96372; G0463; J3420

== ENCOUNTER → 2020-05-28 | Outpatient (CLI) | payer MEDICAID ==
[~2020-05-28] MED LIST changes: -CYANOCOBALAMIN (B-12) 1000 MCG/1 ML VIAL IM ONE; -CYANOCOBALAMIN (B-12) 1000 MCG/1 ML VIAL ONE
[2020-05-28 11:30] LABS: Basophils # (auto) 0 10 ^3/uL (0-0.2); Basophils % (auto) 0.3 % (0.0-2.0); Eosinophils # (auto) 0 10 ^3/uL (0-0.8); Hemoglobin 13.3 g/dL (13.5-17.5); Lymphocytes # (auto) 0.3 10 ^3/uL (0.4-5.4); Lymphocytes % (auto) 5.7 % (10.0-50.0); Mean Corpuscular Hemoglobin 28.9 pg (28.0-32.0); Mean Corpuscular Hgb Conc. 32.4 g/dL (32.0-36.0); Mean Corpuscular Volume 89.4 fL (80.0-100.0); Monocytes # (auto) 0.4 10 ^3/uL (0-1.3); Monocytes % (auto) 5.7 % (0.0-12.0); Neutrophils # (auto) 5.4 10 ^3/uL (1.6-8.6); Neutrophils % (auto) 88.3 % (37.0-80.0); Nucleated Red Blood Cells % 1.6 %; Platelet Count (auto) 247 10^3/uL (140-450); Red Blood Cells 4.59 10^6/uL (4.5-5.90); Red Cell Distribution Width 17.5 % (11.8-14.3); White Blood Cell 6.2 10^3/uL (4.4-10.8)
[2020-05-28 11:43] LABS: INR 1.21 (0.9-1.15); Partial Thromboplastin Time 28.8 sec (23.0-31.2)
[2020-05-28 13:06] VITALS: BP 110/77
== END | disposition home or self-care (01) ==
LOC: CHF HDHVI 10:38
PROVIDERS: ATTEND Internal Medicine Cardiovascular Disease
DX: I50.23 Acute on chronic systolic (congestive) heart failure (principal); E11.9 Type 2 diabetes mellitus without complications
CPT/HCPCS: 36415; 82565; 83036; 84520; 85025; 85610; 85730; G0463

== ENCOUNTER 2020-06-01 11:39 | Inpatient (IN) | payer MEDICAID ==
[~2020-06-01] VITALS: Ht 175.3 cm; Wt 68.0 kg
[~2020-06-01 11:39] MED LIST changes: -ALBUAER3 IN; -ASCO500T11 PO; -BENZ100C97 PO; -BUME1TAB25 PO; -BUME2TAB5 PO; -BUSP10TA31 PO; -CHOL1CAP47 PO; -CHOL20009 PO; -FLUC200T50 PO; -HYDR25TA87 PO; -PRE1T PO; -PRED20TA2 PO; -ZINC220T6 PO
[2020-06-01] MEDS ORDERED: FUROSEMIDE 40 MG/4 ML VIAL IV ONE (12:00)
[2020-06-01 12:36] LABS: Basophils # (auto) 0 10 ^3/uL (0-0.2); Basophils % (auto) 0.3 % (0.0-2.0); Eosinophils # (auto) 0 10 ^3/uL (0-0.8); Eosinophils % (auto) 0.2 % (0.0-7.0); Hemoglobin 12.9 g/dL (13.5-17.5); Lymphocytes # (auto) 0.3 10 ^3/uL (0.4-5.4); Lymphocytes % (auto) 3.6 % (10.0-50.0); Mean Corpuscular Hemoglobin 28.7 pg (28.0-32.0); Mean Corpuscular Hgb Conc. 32.2 g/dL (32.0-36.0); Mean Corpuscular Volume 89.1 fL (80.0-100.0); Monocytes # (auto) 0.5 10 ^3/uL (0-1.3); Monocytes % (auto) 6.1 % (0.0-12.0); Neutrophils # (auto) 7.7 10 ^3/uL (1.6-8.6); Neutrophils % (auto) 89.8 % (37.0-80.0); Nucleated Red Blood Cells % 7.3 %; Platelet Count (auto) 221 10^3/uL (140-450); Red Blood Cells 4.49 10^6/uL (4.5-5.90); Red Cell Distribution Width 17.6 % (11.8-14.3); White Blood Cell 8.6 10^3/uL (4.4-10.8)
[2020-06-01 12:59] LABS: Albumin 2.5 g/dL (3.4-5.0); Calcium 8.8 mg/dL (8.5-10.1); Potassium 4.8 mmol/L (3.5-5.1)
[2020-06-01 13:07] LABS: BUN/Creatinine Ratio 12.3; Bilirubin, Total 1.6 mg/dL (0.2-1.0); CRP High Sensitivity 9.6 mg/dL (< 0.3); Total Protein 7.5 g/dL (6.4-8.2)
[2020-06-01 13:13] LABS: INR 1.17 (0.9-1.15); Partial Thromboplastin Time 28.1 sec (23.0-31.2)
[2020-06-01] MEDS ORDERED: PRE1T PO (14:00)
[2020-06-01] MEDS ORDERED: BUSP10TA31 PO (14:00)
[2020-06-01] MEDS ORDERED: HYDR25TA87 PO (14:00)
[2020-06-01] MEDS ORDERED: BENZ100C97 PO (14:00)
[2020-06-01] MEDS ORDERED: BUME1TAB25 PO (14:00)
[2020-06-01] MEDS ORDERED: ENOXAPARIN SOD 80 MG/0.8ML SYRINGE SC ONE (16:30)
[2020-06-01] MEDS ORDERED: SODIUM CHL 0.9% 1000 ML BAG XX ONE (16:45)
[2020-06-01] MEDS ORDERED: PANTOPRAZOLE 40 MG TAB PO ONE (17:30)
[2020-06-01] MEDS ORDERED: NITROGLYCERIN 0.4 MG SL TAB SL PRN (17:30)
[2020-06-01] MEDS ORDERED: HYDROcodone-ACET 5/325MG TAB PO PRN (17:30)
[2020-06-01] MEDS ORDERED: ONDANSETRON HCL 4 MG/2 ML VIAL IV PRN (17:30)
[2020-06-01] MEDS ORDERED: ACETAMINOPHEN 325 MG TAB PO PRN (17:30)
[2020-06-01] MEDS: NOREPINEPHRINE 8 MG/250ML KIT 250 ML IV SCH (17:59)
[2020-06-01] MEDS ORDERED: ALBUTEROL SULF 2.5 MG/0.5ML(0.5%) NEB SOLN NEB SCH (18:00)
[2020-06-01] MEDS ORDERED: REMDESIVIR PER PHARMACY 0 ML IV SCH ×2 (18:45)
[2020-06-01] MEDS ORDERED: DOBUTamine 1000MCG/ML 250 ML IV SCH (18:45)
[2020-06-01] MEDS: IVERMECTIN 3 MG TAB PO SCH (19:45)
[2020-06-01] MEDS ORDERED: REMDESIVIR 200 MG in NS 210ml LOADING DOSE ADULT IV ONE (20:30)
[2020-06-01] MEDS: BUDESONIDE (INHALATION) 180 MCG IH IN SCH (20:35)
[2020-06-01] MEDS: FUROSEMIDE 20 MG/2 ML VIAL IV SCH (20:36)
[2020-06-01] MEDS: DexAMETHasone SOD PHOS 10MG/1ML VIAL INJ IV SCH (20:37)
[2020-06-01] MEDS: DOBUTamine 1000MCG/ML 250 ML IV SCH (21:36)
[2020-06-01] MEDS: busPIRone HCL 10 MG TAB PO SCH (22:00)
[2020-06-01] MEDS ORDERED: PATIENTS OWN MEDICATION (PULMICORT 360 MCG) IN SCH (22:00)
[2020-06-01] MEDS: POTASSIUM CHL 10 Meq TABLET PO SCH (22:00)
[2020-06-02] MEDS: NOREPINEPHRINE 8 MG/250ML KIT 250 ML IV SCH (02:38)
[2020-06-02] MEDS: busPIRone HCL 10 MG TAB PO SCH ×3 (06:00→21:21)
[2020-06-02] MEDS: DOBUTamine 1000MCG/ML 250 ML IV SCH ×2 (07:00→19:15)
[2020-06-02 07:14] LABS: Albumin 2.3 g/dL (3.4-5.0); BUN/Creatinine Ratio 12.7; Bilirubin, Total 1.6 mg/dL (0.2-1.0); Calcium 8.3 mg/dL (8.5-10.1); Total Protein 6.7 g/dL (6.4-8.2)
[2020-06-02 07:18] LABS: Hematocrit 35.2 % (41.0-53.0); Hemoglobin 11.8 g/dL (13.5-17.5); Mean Corpuscular Hemoglobin 29.6 pg (28.0-32.0); Mean Corpuscular Hgb Conc. 33.4 g/dL (32.0-36.0); Mean Corpuscular Volume 88.6 fL (80.0-100.0); Platelet Count (auto) 150 10^3/uL (140-450); Red Blood Cells 3.97 10^6/uL (4.5-5.90); Red Cell Distribution Width 17.3 % (11.8-14.3); White Blood Cell 7.7 10^3/uL (4.4-10.8)
[2020-06-02] MEDS: FUROSEMIDE 20 MG/2 ML VIAL IV SCH ×2 (07:20→17:56)
[2020-06-02 07:24] LABS: Potassium 5.3 mmol/L (3.5-5.1)
[2020-06-02 07:51] LABS: Band Neutrophils % (manual) 0; Basophils % (manual) 0 (0.0-2.0); Blast Cells 0; Eosinophils % (manual) 0 (0-7); Metamyelocytes % 0; Myelocytes % 0; Promyelocytes % 0; Reactive Lymphocytes 0
[2020-06-02 09:31] LABS: Lymphocytes % (manual) 3 (10.0-50.0); Monocytes % (manual) 1 (0-12)
[2020-06-02] MEDS ORDERED: DexAMETHasone SOD PHOS 10MG/1ML VIAL INJ IV SCH (10:00)
[2020-06-02] MEDS ORDERED: PATIENTS OWN MEDICATION PO SCH (10:00)
[2020-06-02] MEDS ORDERED: SODIUM CHL 0.9% 1000 ML BAG XX ONE (10:00)
[2020-06-02] MEDS ORDERED: IVERMECTIN 3 MG TAB PO SCH (10:00)
[2020-06-02] MEDS: BUDESONIDE (INHALATION) 180 MCG IH IN SCH ×2 (10:15→18:36)
[2020-06-02] MEDS: ZINC SULFATE 220mg CAP or TAB PO SCH (10:25)
[2020-06-02] MEDS: AMIODARONE HCL 200 MG TAB PO SCH (10:25)
[2020-06-02] MEDS: DexAMETHasone SOD PHOS 10MG/1ML VIAL INJ IV SCH (10:25)
[2020-06-02] MEDS: CHOLECALCIFEROL (VITD3) 2,000 UNIT CAP/TAB PO SCH (10:26)
[2020-06-02] MEDS: ASCORBIC ACID 500 MG TAB PO SCH (10:26)
[2020-06-02] MEDS: IVERMECTIN 3 MG TAB PO SCH (10:26)
[2020-06-02] MEDS: POTASSIUM CHL 10 Meq TABLET PO SCH ×2 (10:26→21:21)
[2020-06-02] MEDS ORDERED: MAGN400T40 PO (11:35)
[2020-06-02] MEDS ORDERED: ALBUAER3 IN (11:35)
[2020-06-02] MEDS ORDERED: BUME2TAB5 PO (11:35)
[2020-06-02] MEDS ORDERED: FLUC200T50 PO (11:35)
[2020-06-02] MEDS ORDERED: CHOL20009 PO (11:35)
[2020-06-02] MEDS ORDERED: PRED20TA2 PO (11:35)
[2020-06-02] MEDS ORDERED: ASCO500T11 PO (13:47)
[2020-06-02] MEDS ORDERED: CHOL1CAP47 PO (13:48)
[2020-06-02] MEDS ORDERED: ZINC220T6 PO (13:48)
[2020-06-02 14:10] LABS: BUN/Creatinine Ratio 12.4; Calcium 8.3 mg/dL (8.5-10.1)
[2020-06-02] MEDS ORDERED: REMDESIVIR 100mg 100 MG in SODIUM CHL 0.9% 230 ML IV SCH (15:00)
[2020-06-02] MEDS ORDERED: RIVAROXABAN 15 MG TAB PO SCH (18:00)
[2020-06-03] MEDS: FUROSEMIDE 20 MG/2 ML VIAL IV SCH ×2 (06:00→07:49)
[2020-06-03] MEDS: busPIRone HCL 10 MG TAB PO SCH ×2 (06:00→14:25)
[2020-06-03 06:54] LABS: Hematocrit 40.2 % (41.0-53.0); Hemoglobin 13.1 g/dL (13.5-17.5); Mean Corpuscular Hemoglobin 30.2 pg (28.0-32.0); Mean Corpuscular Hgb Conc. 32.7 g/dL (32.0-36.0); Mean Corpuscular Volume 92.5 fL (80.0-100.0); Platelet Count (auto) 126 10^3/uL (140-450); Red Blood Cells 4.35 10^6/uL (4.5-5.90); Red Cell Distribution Width 17.5 % (11.8-14.3); White Blood Cell 12.2 10^3/uL (4.4-10.8)
[2020-06-03 07:14] LABS: Band Neutrophils % (manual) 0; Basophils % (manual) 0 (0.0-2.0); Blast Cells 0; Eosinophils % (manual) 0 (0-7); Metamyelocytes % 0; Myelocytes % 0; Promyelocytes % 0; Reactive Lymphocytes 0
[2020-06-03 07:22] LABS: Albumin 2.5 g/dL (3.4-5.0); BUN/Creatinine Ratio 13.2; Bilirubin, Total 1.5 mg/dL (0.2-1.0); Calcium 8.4 mg/dL (8.5-10.1); Total Protein 7.4 g/dL (6.4-8.2)
[2020-06-03] MEDS: DOBUTamine 1000MCG/ML 250 ML IV SCH (07:30)
[2020-06-03] MEDS: BUDESONIDE (INHALATION) 180 MCG IH IN SCH (07:33)
[2020-06-03 07:36] LABS: Potassium 5.6 mmol/L (3.5-5.1)
[2020-06-03 09:24] LABS: Lymphocytes % (manual) 4 (10.0-50.0); Monocytes % (manual) 11 (0-12)
[2020-06-03] MEDS: MORPHINE SULF INJ 2 MG/ML SYRINGE 1ML IV PRN ×2 (10:23→14:38)
[2020-06-03] MEDS ORDERED: InsuLIN REG 1unit/0.01ml Soln (100units/ml) IV ONE (11:45)
[2020-06-03] MEDS ORDERED: ALBUTEROL SULF 2.5 MG/0.5ML(0.5%) NEB SOLN NEB ONE (11:45)
[2020-06-03] MEDS ORDERED: REMDESIVIR PER PHARMACY 0 ML IV SCH (11:45)
[2020-06-03] MEDS ORDERED: DexAMETHasone SOD PHOS 10MG/1ML VIAL INJ IV SCH (11:45)
[2020-06-03] MEDS ORDERED: DEXTROSE (25%) 10 ML SYRG IV ONE (11:45)
[2020-06-03] MEDS ORDERED: SODIUM ZIRCONIUM CYCL 10 GM PAK PO ONE (11:45)
[2020-06-03] MEDS ORDERED: APIXABAN 5 MG TAB PO SCH (12:00)
[2020-06-03] MEDS: AMIODARONE HCL 200 MG TAB PO SCH (12:17)
[2020-06-03] MEDS: ASCORBIC ACID 500 MG TAB PO SCH (12:20)
[2020-06-03] MEDS: ZINC SULFATE 220mg CAP or TAB PO SCH (12:20)
[2020-06-03] MEDS: CHOLECALCIFEROL (VITD3) 2,000 UNIT CAP/TAB PO SCH (12:20)
[2020-06-03] MEDS: IVERMECTIN 3 MG TAB PO SCH (12:20)
[2020-06-03] MEDS ORDERED: SODIUM ZIRCONIUM CYCL 10 GM PAK PO SCH (14:00)
[2020-06-03] MEDS ORDERED: REMDESIVIR 100mg 100 MG in SODIUM CHL 0.9% 230 ML IV SCH (15:00)
[2020-06-03] MEDS: NOREPINEPHRINE 8 MG/250ML KIT 250 ML IV SCH (15:50)
[2020-06-03] MEDS ORDERED: ALPRAZolam 0.25 MG TAB PO PRN (16:00)
[2020-06-03] MEDS ORDERED: SODIUM BICARBONATE 8.4% INJ 50ML SYRINGE ONE ×2 (16:23→16:35)
[2020-06-03] MEDS ORDERED: MIDAZOLAM DRIP 50 mg/50mL 50 ML IV ONE (16:28)
[2020-06-03] MEDS ORDERED: EPINEPHrine HCL 250 ML IV ONE (16:36)
[2020-06-03 16:58] LABS: Albumin 2.8 g/dL (3.4-5.0); Calcium 9.1 mg/dL (8.5-10.1)
[2020-06-03 17:00] LABS: Bilirubin, Total 2.3 mg/dL (0.2-1.0); Total Protein 7.5 g/dL (6.4-8.2)
[2020-06-03 17:02] LABS: Potassium 6.2 mmol/L (3.5-5.1)
[2020-06-03 18:00] VITALS: BP 105/68
[2020-06-04] MEDS ORDERED: SODIUM CHL 0.9% 1000 ML BAG XX ONE (07:00)
== END 2020-06-03 16:45 | DRG 137 ==
LOC: ER 11:39 → TELE 11:40
PROVIDERS: ADMIT Internal Medicine; ATTEND Internal Medicine
PROC: XW033E5 Introduction of Remdesivir Anti-infective into Peripheral Vein, Percutaneous Approach, New Technology Group 5 (ICD-10-PCS; 2020-06-01)
PROC: 5A1D70Z Performance of Urinary Filtration, Intermittent, Less than 6 Hours Per Day (ICD-10-PCS; 2020-06-01)
PROC: 5A1D70Z Performance of Urinary Filtration, Intermittent, Less than 6 Hours Per Day (ICD-10-PCS; 2020-06-02)
PROC: 0W9B3ZZ Drainage of Left Pleural Cavity, Percutaneous Approach (ICD-10-PCS; principal; 2020-06-03)
PROC: 5A12012 Performance of Cardiac Output, Single, Manual (ICD-10-PCS; 2020-06-03)
DX: U07.1 COVID-19 (principal); I50.43 Acute on chronic combined systolic (congestive) and diastolic (congestive) heart failure; J12.82 Pneumonia due to coronavirus disease 2019; N18.6 End stage renal disease; E87.1 Hypo-osmolality and hyponatremia; I95.9 Hypotension, unspecified; I21.A1 Myocardial infarction type 2; D63.8 Anemia in other chronic diseases classified elsewhere; E87.5 Hyperkalemia; F32.9 Major depressive disorder, single episode, unspecified; F41.9 Anxiety disorder, unspecified; I13.2 Hypertensive heart and chronic kidney disease with heart failure and with stage 5 chronic kidney disease, or end stage renal disease; I25.10 Atherosclerotic heart disease of native coronary artery without angina pectoris; I42.9 Cardiomyopathy, unspecified; J96.00 Acute respiratory failure, unspecified whether with hypoxia or hypercapnia; Z99.2 Dependence on renal dialysis; J98.11 Atelectasis; J91.8 Pleural effusion in other conditions classified elsewhere; I48.91 Unspecified atrial fibrillation; R62.7 Adult failure to thrive; Z79.01 Long term (current) use of anticoagulants; Z95.810 Presence of automatic (implantable) cardiac defibrillator; Z76.82 Awaiting organ transplant status; I46.9 Cardiac arrest, cause unspecified
CPT/HCPCS: 10022; 36415; 36600; 70450; 71045; 76604; 76942; 80048; 80053; 82306; 82728; 82805; 82962; 83615; 83880; 83970; 83986; 84100; 84484; 85007; 85025; 85027; 85610; 85730; 86141; 87070; 87205; 87426; 89051; 90935; 92950; 93005; 94640; 96365; 96375; 99291; G0378; J0171; J1100; J1642; J2250